=== PATIENT | female | born 1955 | race Caucasian/White ===

== ENCOUNTER → 2019-10-14 15:49 | Outpatient (CLI) | payer BC, SELFPAY ==
--- NOTE | ~2019-10-14 | MM_ITS ---
EXAMINATION: MM screening [facility] BI w silvia HISTORY: Screening TECHNIQUE: Craniocaudal and mediolateral oblique 3-D tomosynthesis images were obtained and synthetic 2-D images were generated. CAD analysis was submitted and interpreted. COMPARISON: Comparison to multiple prior studies sequentially, with oldest reviewed study dated 05/2013. BREAST PARENCHYMAL COMPOSITION: There are scattered areas of fibroglandular density. FINDINGS: There is a developing mass in the upper outer quadrant of the left breast measuring approxi mately 9 mm maximum dimension. The right breast is stable without evidence for malignancy. IMPRESSION: 1. Developing left breast mass, upper outer quadrant. 2. Additional mammographic views and possible breast ultrasound are recommended. BI-RADS Category 0: Incomplete: Needs additional imaging evaluation. Reviewed, dictated and finalized at location A. IMPRESSION: 1. Developing left breast mass, upper outer quadrant. 2. Additional mammographic views and possible breast ultrasound are recommended . BI-RADS Category 0: Incomplete: Needs additional imaging evaluation.
== END ==
PROVIDERS: Visit Provider Obstetrics & Gynecology
DX: Z12.31 Encounter for screening mammogram for malignant neoplasm of breast (principal); R92.8 Other abnormal and inconclusive findings on diagnostic imaging of breast
CPT/HCPCS: 77063; 77067

== ENCOUNTER → 2019-10-30 14:17 | Outpatient (CLI) | payer BC, SELFPAY ==
--- NOTE | ~2019-10-30 | MMUS_ITS ---
EXAMINATION: MM diagnostic mammo unilat LT, US breast LT limited HISTORY: Left breast mass on screening mammogram TECHNIQUE: Additional 3-D tomosynthesis images of the left breast were performed and synthetic 2-D im ages were generated. CAD analysis was submitted and interpreted. High resolution limited left breast ultrasound was performed. COMPARISON: 10/14/2019, 10/10/2018, 09/10/2017, 08/23/2016 FINDINGS: MAMMOGRAPHIC FINDINGS: There is a 10 mm x 7 mm oval, high density, circumscribed mass in the posterior third of the upper ou ter quadrant of the breast at the 1:00 location 9 cm from the nipple. ULTRASOUND: There is a 10 mm x 6 mm oval, circumscribed, parallel, complex cystic and solid mass at the 1:00 loca tion 9 cm from the nipple corresponding to the mammographic finding in question. There appears to be vascularity involving the solid component of the mass. IMPRESSION: 1. Suspicious left breast mass. 2. Ultrasound-guided biopsy is recommended. BI-RADS category 4, suspicious findings. Reviewed, dictated and finalized at location A. IMPRESSION: 1. Suspicious left breast mass. 2. Ultrasound-guided biopsy is recommended. BI-RADS category 4, suspicious findings.
== END ==
PROVIDERS: PCP Internal Medicine; Visit Provider Obstetrics & Gynecology
DX: R92.8 Other abnormal and inconclusive findings on diagnostic imaging of breast (principal)
CPT/HCPCS: 76642; 77065

== ENCOUNTER 2020-10-24 10:44 | Outpatient (CLI) | payer BC, MEDICARE, SELFPAY | END 2020-10-24 10:45 | disposition home or self-care (01) | LOC: ANHAUDASC 10:51 | PROVIDERS: PCP Internal Medicine; Visit Provider Otolaryngology | DX: H93.12 Tinnitus, left ear (principal); H90.3 Sensorineural hearing loss, bilateral | CPT/HCPCS: 92557; 92567 ==

== ENCOUNTER → 2020-11-23 07:25 | Outpatient (CLI) | payer MEDICARE, BC, SELFPAY ==
--- NOTE | ~2020-11-23 | MR_ITS ---
EXAMINATION: MR brain IAC wo/w con DATE: 11/23/2020 08:38 INDICATION: Bilateral sensorineural hearing loss. TECHNIQUE: Magnetic resonance imaging (MRI) of the brain, brainstem, and internal auditory canals was performed without and with 10 mL MultiHance intravenous contrast. Sequences included sagittal and ax ial T1-weighted FSE, axial diffusion-weighted FS EPI, axial T2*-weighted GRE, axial T2-weighted FLAIR Propeller, axial T2-weighted Propeller, small mvwrg-nk-gbfl coronal FIESTA, small xobpo-zm-mwrj manuel nal T1-weighted FSE, and small qjowe-nf-kbus axial T1-weighted SPGR. Postcontrast sequences included axial T1-weighted FSE, small jzhxh-bo-tcyn coronal T1-weighted FSE, and small giyik-te-gphw axial T1- weighted SPGR. Apparent diffusion coefficient (ADC) maps were created. COMPARISON: None. FINDINGS: There is no intracranial hemorrhage, acute infarction, or abnormal intracranial mass lesion . The ventricles are normal in size. The orbits are normal. There is mild mucosal thickening in the p aranasal sinuses. The internal auditory canals and inner and middle ears are normal. The mastoid air cells are normal. IMPRESSION: 1. Normal brain. Reviewed, dictated and finalized at location A. IMPRESSION: 1. Normal brain.
== END ==
PROVIDERS: PCP Internal Medicine; Visit Provider Otolaryngology
DX: H90.3 Sensorineural hearing loss, bilateral (principal)
CPT/HCPCS: 70553; A9577

== ENCOUNTER 2021-08-03 01:08 | Day surgery (SDC) | payer MEDICARE, BC, SELFPAY ==
[2021-07-19 13:48] VITALS: BMI 22.9
[2021-08-03 10:32] VITALS: BP 95/61; PULSE 100; RESP 16; TEMP 36.7; O2SAT 100; BMI 21.7
[2021-08-03] MEDS: LACTATED RINGERS 1,000 ML 150 ML IV CONT (10:57)
--- NOTE | 2021-08-03 11:22 | PM.HPGS ---
History of Present Illness History of Present Illness Consent: Risks, benefits, and alternatives have been discussed and questions answered. Patient agrees to proceed with procedure. Chief complaint: colitis Narrative: Rosalinda Valles is a 66 year old female Who ?has been suffering from diarrhea.? She had a breast reconstruction in March for which she had abdominal surgery to provide a flap.? She was not given any antibiotics after that but about 12 days after the surgery she had vomiting which was severe and lasted 1 day and also developed diarrhea that day.? Diarrhea continued.? She had a virtual visit with her primary care provider and was given a prescription for azithromycin.? Before? starting the antibiotic, her stools were actually watery or very very soft and? accompanied at times but mucous.? There was however no blood in her stools.? She believes that she may have had a low-grade fever.? She states that she had C diff colitis several years ago but that this is nothing like that.? She then in fact did have stool studies done that were all negative, ? Including C diff.? after taking the azithromycin she was doing great for 3 weeks.? Now she is again having loose stools Review of Systems Review of Systems: All systems reviewed & are unremarkable except as noted in HPI and below PMFSH Past Medical History Medical History (Updated 08/03/21 @ 11:25 by Marcell Jones MD) Anxiety and depression Hemorrhoids History of measles, mumps, or rubella Osteopenia Skin cancer Trigger finger Surgical History Surgical History H/O breast reconstruction (~03/23/20) History of appendectomy Hx of lumpectomy (~12/2019) Hx of mastectomy (~02/17/20) Family History Family History Mother Family history of skin conditions Sibling Family history of malignant melanoma Father Skin cancer Liver cancer Social History Social History Smoking status: Never smoker Alcohol intake: current Alcohol use details: 1 drink monthly Substance use: never Substance use type: does not use Living arrangements: with family Spiritual care concerns: No Meds Home Medications and Allergies Home Medications Medication Instructions Recorded Confirmed Type cholecalciferol (vitamin D3) 25 2,000 unit PO DAILY 07/17/19 08/03/21 History mcg (1,000 unit) capsule multivitamin 1 tablet PO DAILY 07/17/19 08/03/21 History letrozole 2.5 mg tablet 2.5 mg PO DAILY 11/15/20 08/03/21 History Saccharomyces boulardii 250 mg 250 mg PO BID 07/05/21 08/03/21 History capsule (Daily Probiotic (S. boulardii)) vitamin E 200 unit capsule 400 unit PO EVERY OTHER DAY 07/05/21 08/03/21 History azelastine 137 mcg (0.1 %) nasal 1 spray intranasal Q12H PRN 07/19/21 08/03/21 History spray aerosol Allergy Symptoms escitalopram oxalate 10 mg tablet 10 mg PO DAILY #90 tabs 08/02/21 08/03/21 Rx (Lexapro) Allergies Allergy/AdvReac Type Severity Reaction Status Date / Time amoxicillin [From Augmentin] AdvReac Mild diarrhea Verified 08/03/21 10:42 clavulanic acid AdvReac Mild diarrhea Verified 08/03/21 10:42 [From Augmentin] Vital Signs Vital Signs - 24 hr 08/03/21 10:32 Temperature 36.7 C Pulse Rate 100 Respiratory Rate 16 Blood Pressure 95/61 L Pulse Oximetry 100 Oxygen Delivery Room Air Exam Resp: Auscultation: clear to auscultation bilaterally Cardio: Rate: regular rate Rhythm: regular rhythm GI: GI Palp: Yes Soft to palpation and No Tenderness to palpation present (GI) Assessment and Plan Assessment and plan (1) Chronic diarrhea: Code(s): K52.9 - Noninfective gastroenteritis and colitis, unspecified Status: Acute Assessment and Plan: Colonoscopy with possible biopsy or polypectomy or cautery or injection of substances.
--- NOTE | 2021-08-03 11:25 | WPDANESEPPF ---
Anes - Initial Pre Proc Eval Procedure: Operation Date: 08/03/21 11:45 Proposed Procedures p Colonoscopy - Marcell Jones MD Date/Time: 08/03/21 11:25 Surgeon: Marcell Jones MD Pre Op Diagnosis: colitis Patient Data Age: 66 Gender: F Height: 1.57 m Weight: 54 kg Last Vital Signs Temp 98.0 F 08/03/21 10:32 Pulse 100 08/03/21 10:32 Resp 16 08/03/21 10:32 BP 95/61 L 08/03/21 10:32 Pulse Ox 100 08/03/21 10:32 O2 Del Method Room Air 08/03/21 10:32 Allergies Allergy/AdvReac Type Severity Reaction Status Date / Time amoxicillin [From Augmentin] AdvReac Mild diarrhea Verified 08/03/21 10:42 clavulanic acid AdvReac Mild diarrhea Verified 08/03/21 10:42 [From Augmentin] Home Medications Medication Instructions Recorded Confirmed Type cholecalciferol (vitamin D3) 25 2,000 unit PO DAILY 07/17/19 08/03/21 History mcg (1,000 unit) capsule multivitamin 1 tablet PO DAILY 07/17/19 08/03/21 History letrozole 2.5 mg tablet 2.5 mg PO DAILY 11/15/20 08/03/21 History Saccharomyces boulardii 250 mg 250 mg PO BID 07/05/21 08/03/21 History capsule (Daily Probiotic (S. boulardii)) vitamin E 200 unit capsule 400 unit PO EVERY OTHER DAY 07/05/21 08/03/21 History azelastine 137 mcg (0.1 %) nasal 1 spray intranasal Q12H PRN 07/19/21 08/03/21 History spray aerosol Allergy Symptoms escitalopram oxalate 10 mg tablet 10 mg PO DAILY #90 tabs 08/02/21 08/03/21 Rx (Lexapro) Patient hx anesthesia problems: none Family hx anesthesia problems: none Results Review: All pre-operative results and documents have been reviewed as part of the pre-operative evaluation. [facility] Past Medical History Medical History (Updated 08/03/21 @ 11:25 by Marcell Jones MD) Anxiety and depression Hemorrhoids History of measles, mumps, or rubella Osteopenia Skin cancer Trigger finger Surgical History Surgical History H/O breast reconstruction (~03/23/20) History of appendectomy Hx of lumpectomy (~12/2019) Hx of mastectomy (~02/17/20) Family History Family History Mother Family history of skin conditions Sibling Family history of malignant melanoma Father Skin cancer Liver cancer Social History Social History Smoking status: Never smoker Alcohol intake: current Alcohol use details: 1 drink monthly Substance use: never Substance use type: does not use Living arrangements: with family Spiritual care concerns: No Anes - Eval Final PreProcedure Day of Procedure 08/03/21 11:25 Patient weight: normal Heart: regular rate and rhythm Lungs: clear to auscultation Airway: Mallampati scale class II Neurological: alert and oriented Last oral intake: >/= 8 hours ASA classification: III Emergent: no Anesthetic plan: proceed Anesthesia type and monitoring: general and standard monitoring Results Review: All pre-operative results and documents have been reviewed as part of the pre-operative evaluation. Informed Consent: The patient's anesthetic plan and its attendant risks and benefits were discussed with the patient/family/POA. Questions were solicited and answers provided to the satisfaction of the patient/family/POA.
[2021-08-03] MEDS: SIMETHICONE ORAL SUSPENSION 20 MG/0.3 ML 30 ML BOTTLE 0.6 ML IRRIGATION (11:43)
[2021-08-03 11:49] VITALS: BP 88/53; PULSE 88; RESP 18; O2SAT 100
[2021-08-03 11:59] VITALS: BP 91/52; PULSE 80; RESP 21; O2SAT 100
[2021-08-03 12:09] VITALS: BP 103/59; PULSE 78; RESP 21; O2SAT 100
== END 2021-08-03 12:15 | disposition home or self-care (01) ==
PROVIDERS: PCP Internal Medicine; Visit Provider Internal Medicine Gastroenterology
PROC: 0DJD8ZZ Inspection of Lower Intestinal Tract, Via Natural or Artificial Opening Endoscopic (ICD-10-PCS; CPT 45378; principal; 2021-08-03 11:45)
DX: R19.7 Diarrhea, unspecified (principal); K64.8 Other hemorrhoids; K57.30 Diverticulosis of large intestine without perforation or abscess without bleeding; F41.8 Other specified anxiety disorders; Z85.3 Personal history of malignant neoplasm of breast; Z79.811 Long term (current) use of aromatase inhibitors
CPT/HCPCS: 45380; 88305; J2704; J7120

== ENCOUNTER 2022-02-07 08:16 | Outpatient (CLI) | payer MEDICARE, OTHER, SELFPAY ==
--- NOTE | 2022-03-02 09:42 | WPDSLEEPSTUD ---
Sleep Study Date of Study: 02/07/22 Ordering Provider: Anh Easley DO Interpreting Physician: Antionette Mena MD Sleep Study Type: Polysomnogram Height: 1.57 m Weight: 58.513 kg Body Mass Index: 23.6 Neck Circumference (inches): 15 Seguin: 3 Reason for Sleep Study Snoring Sleep History Rosalinda Valles is a 66-year-old woman with complaints of snoring. Occasionally she snores loudly enough that others complain. She does not awaken from sleep feeling short of breath or having heartburn, belching or coughing. She rarely has trouble sleeping with a cold. She denies gasping for breath at night, sweating excessively at night, noticing her heart pounding or beating irregularly at night as well as falling asleep during the day, falling asleep involuntarily or while driving. She does not have loss of muscle tone with strong emotion. She does not have daytime difficulties due to excessive sleepiness. She is retired. She does not feel paralyzed on waking or falling asleep nor does she have vivid dreamlike scenes upon awakening or falling asleep. She does not feel afraid to go to sleep. She rarely has nightmares. She rarely remembers her dreams. She occasionally has racing thoughts. She does not feel sad or depressed. Very rarely she has anxiety. She does not have muscular tension, notice parts of her body jerking, kick at night or have crawling or aching feelings in her legs. She does not have leg pain at night. She denies morning jaw pain, grinding her teeth during sleep. She is not bothered by pain during the day nor awakened by pain at night. She does not wake up feeling stiff in the morning with sore achy muscles or wake with pain in the neck or spine. She has sinus problems. Normal bedtime is 11:00 p.m. falling asleep quickly most of the time. Sometimes she wakes during the night. Sometimes she never awakens and sometimes she may awaken 1-2 times at night. She is able to return to sleep easily. Her normal wake time is 7:00 a.m.. Weekends are similar. She estimates getting 8 hours of sleep at night. She occasionally takes naps in the day. Occasionally a short nap may be refreshing. Habits: Never smoked tobacco. No caffeine, alcohol or recreational drugs. [facility] Past Medical History Medical History Anxiety and depression Hemorrhoids History of left breast cancer History of measles, mumps, or rubella Osteopenia Skin cancer Trigger finger Surgical History Surgical History H/O breast reconstruction (~03/23/20) History of appendectomy Hx of lumpectomy (~12/2019) Hx of mastectomy (~02/17/20) Family History Family History Mother Family history of skin conditions Sibling Family history of malignant melanoma Father Skin cancer Liver cancer Social History Social History (Updated 03/07/22 @ 11:09 by Christy Ramirez CMA) Social History: Caffeine-rarely Smoking status: Never smoker Alcohol intake: current Alcohol use details: 1 drink monthly Substance use: never Substance use type: does not use Lack of Transportation: No Lack of Food: Never True Current Housing: I Have Housing Concerned About Future Housing: No Difficulty Paying Gas/Electric Bills: No Difficulty Paying for Meds: No Currently Unemployed: No Education: Master's Degree or Higher Difficulty w/ Childcare or Family Care: No Spiritual care concerns: No Medications Home Medications Medication Instructions Recorded Confirmed Type multivitamin 1 tablet PO DAILY 07/17/19 01/31/22 History letrozole 2.5 mg tablet 2.5 mg PO DAILY 11/15/20 01/31/22 History vitamin E 200 unit capsule 400 unit PO EVERY OTHER DAY 07/05/21 01/31/22 History azelastine 137 mcg (0.1 %) nasal 1 spray intranasal Q12H PRN 07/19/21 01/31/22 History spray aeroso
[2022-03-07 11:17] VITALS: BMI 23.6
== END 2022-02-08 06:20 | disposition home or self-care (01) ==
LOC: ANHCSM 08:20
PROVIDERS: PCP Internal Medicine; Visit Provider Family Medicine
DX: G47.10 Hypersomnia, unspecified (principal); R06.83 Snoring; Z85.3 Personal history of malignant neoplasm of breast; Z85.828 Personal history of other malignant neoplasm of skin; Z90.12 Acquired absence of left breast and nipple
CPT/HCPCS: 95810

== ENCOUNTER → 2022-03-27 08:40 | Outpatient (CLI) | payer MEDICARE, OTHER, SELFPAY ==
--- NOTE | ~2022-03-27 | US_ITS ---
Renal-Bladder ultrasound Clinical History: Dysuria Technique: Real-time sonographic imaging of the kidneys and urinary bladder was performed. Findings: The right kidney measures 9.3 cm in length and the left kidney measures 10.5 cm. There is n o hydronephrosis or renal calculus identified. Renal cortical echogenicity is within normal limits. N o solid renal mass lesion is identified. Small bilateral renal cysts noted. The urinary bladder is moderately distended at the time of this exam. No intraluminal echoes are iden tified. No abnormal wall thickening is seen. Impression: Unremarkable ultrasound of the kidneys and urinary bladder. Reviewed, dictated and finalized at location M. TTING COORDINATOR Impression: Unremarkable ultrasound of the kidneys and urinary bladder.
== END ==
PROVIDERS: PCP Family Medicine; Visit Provider Nurse Practitioner
DX: R30.0 Dysuria (principal)
CPT/HCPCS: 76775

== ENCOUNTER 2022-04-28 08:32 | Emergency (ER) | payer MEDICARE, OTHER, SELFPAY ==
[2022-04-28 08:44] VITALS: BP 113/90; PULSE 114; RESP 16; TEMP 37.1; O2SAT 99
--- NOTE | 2022-04-28 08:58 | ED.URI ---
HPI - URI/Sore Throat General Chief Complaint: Upper Respiratory Infection Stated Complaint: SORE THROAT Time Seen by Provider: 04/28/22 08:58 Source: patient, RN notes reviewed and old records reviewed Mode of arrival: ambulatory Limitations: no limitations History of Present Illness HPI Narrative: 67-year-old female who presents to [facility] with complaints of sore throat and nasal drainage with some cough for the past 2 days. Patient concerned of strep, she reports she had strep in January and essentially was asymptomatic and has family events this weekend. Patient reports no fevers chills or sweat or any body aches.Patient reports that she has been taking some Sudafed PE for her sinus drainage and Robitussin cough syrup. Patient has been COVID vaccinated and has had flu shot. MD elicited complaint: cough, sore throat and rhinorrhea Onset (ago): day(s) (2) Pain scale (0-10): 4 Treatments prior to arrival: other (robittusin and Sudafed PE) Related Data Home Medications Medication Instructions Recorded Confirmed multivitamin 1 tablet PO DAILY 07/17/19 04/28/22 letrozole 2.5 mg tablet 2.5 mg PO DAILY 11/15/20 04/28/22 vitamin E 200 unit capsule 400 unit PO EVERY OTHER DAY 07/05/21 04/28/22 azelastine 137 mcg (0.1 %) nasal 1 spray intranasal Q12H PRN 07/19/21 04/28/22 spray aerosol Allergy Symptoms Saccharomyces boulardii 250 mg 250 mg PO DAILY 10/19/21 04/28/22 capsule (Daily Probiotic (S. boulardii)) calcium acetate 667 mg tablet 667 mg PO ONCE 10/19/21 04/28/22 cholecalciferol (vitamin D3) 25 5,000 unit PO DAILY 03/07/22 04/28/22 mcg (1,000 unit) capsule Allergies Allergy/AdvReac Type Severity Reaction Status Date / Time amoxicillin [From Augmentin] AdvReac Mild diarrhea Verified 04/28/22 08:46 clavulanic acid AdvReac Mild diarrhea Verified 04/28/22 08:46 [From Augmentin] Review of Systems Review of Systems: CONSTITUTIONAL: Denies malaise, chills, sweats, or fever. EYES: Denies visual changes, redness, or discharge. ENT: Reports rhinorrhea, congestion, sinus pain, no otalgia positive for sore throat. CARDIOVASCULAR: Denies chest pain, palpitations, or edema. RESPIRATORY: Reports cough.? Denies dyspnea. GASTROINTESTINAL: Denies abdominal pain, nausea, vomiting, diarrhea SKIN: Denies rash or itching. MUSCULOSKELETAL: Denies myalgia. NEUROLOGIC: Denies headache. All systems reviewed & are unremarkable except as noted in HPI and below PMFSH Past Medical History Medical History Anxiety and depression Hemorrhoids History of left breast cancer History of measles, mumps, or rubella Osteopenia Skin cancer Trigger finger Surgical History Surgical History H/O breast reconstruction (~03/23/20) History of appendectomy Hx of lumpectomy (~12/2019) Hx of mastectomy (~02/17/20) Family History Family History Mother Family history of skin conditions Sibling Family history of malignant melanoma Father Skin cancer Liver cancer Social History Social History Social History: Caffeine-rarely Smoking status: Never smoker Alcohol intake: current Alcohol use details: 1 drink monthly Substance use: never Substance use type: does not use Lack of Transportation: No Lack of Food: Never True Current Housing: I Have Housing Concerned About Future Housing: No Difficulty Paying Gas/Electric Bills: No Difficulty Paying for Meds: No Currently Unemployed: No Education: Master's Degree or Higher Difficulty w/ Childcare or Family Care: No Living arrangements: with family Spiritual care concerns: No Comments At time of signature, agree with nursing past medical, surgical, social and family history. There is no relevant family history pertinent to
== END 2022-04-28 09:12 | disposition home or self-care (01) ==
PROVIDERS: Emergency Provider Registered Nurse; PCP Family Medicine
DX: J06.9 Acute upper respiratory infection, unspecified (principal); F32.A Depression, unspecified; F41.9 Anxiety disorder, unspecified; M81.0 Age-related osteoporosis without current pathological fracture; Z85.828 Personal history of other malignant neoplasm of skin; Z85.3 Personal history of malignant neoplasm of breast
CPT/HCPCS: 87081; 87880; 99213; G0463

== ENCOUNTER 2023-03-06 09:35 | Outpatient (CLI) | payer MEDICARE, OTHER, SELFPAY ==
[2023-03-06 21:30] LABS: Anion Gap 6 mmol/L (8-16); Blood Urea Nitrogen 13 mg/dL (7-17); Carbon Dioxide 31 mmol/L (22-30); Chloride 103 mmol/L (98-107); Estimated Glomerular Filt Rate > 60; Glucose 52 mg/dL (65-110); Potassium 3.7 mmol/L (3.4-5.0); Sodium 140 mmol/L (137-145)
== END 2023-03-06 09:36 | disposition home or self-care (01) ==
LOC: ANHGOSHLAB 09:38
PROVIDERS: PCP Family Medicine; Visit Provider Nurse Practitioner
DX: E87.5 Hyperkalemia (principal)
CPT/HCPCS: 36415; 80048

== ENCOUNTER 2023-09-30 07:59 | Outpatient (CLI) | payer MEDICARE, SELFPAY | END 2023-09-30 08:00 | disposition home or self-care (01) | LOC: ANHGOSHLAB 08:01 | PROVIDERS: PCP Family Medicine; Visit Provider Family Medicine | DX: R79.89 Other specified abnormal findings of blood chemistry (principal); F32.9 Major depressive disorder, single episode, unspecified; F41.9 Anxiety disorder, unspecified | CPT/HCPCS: 36415; 84443 ==